=== PATIENT | female | born 1955 | race Caucasian/White ===

== ENCOUNTER 2021-03-09 16:26 | Inpatient (IN) | payer OTHER, MEDICAID ==
[~2021-03-09] VITALS: Ht 165.1 cm; Wt 86.2 kg
[~2021-03-09 16:26] MED LIST: LOSA50TA57 PO
--- NOTE | 2021-03-09 16:36 | NUR ---
CALLED PT IN LOBBY AND OUTSIDE, NO ANSWER AT THIS TIME
[2021-03-09 16:39] VITALS: BP 122/70
--- NOTE | 2021-03-09 16:39 | NUR ---
[facility] TO ER BED 1
--- NOTE | 2021-03-09 16:43 | NUR ---
PT BIB ALS RUN C/C CHEST PAIN. PT STATES CHEST PAIN STARTED WHILE TAKING THE TRASH OUT SUBSTERNAL NON RADIATING PRESSURE TYPE PAIN. GIVEN 324 MG ASA AND 4 NITRO WITH RELIEF FROM CP.
--- NOTE | 2021-03-09 16:55 | NUR ---
Flower dela cruz in ED - 03/09/21 at 1656 by [facility] ALS TO ER BED 1
[2021-03-09 17:30] LABS: BASOPHILS % (AUTO) 0.5 % (0.0-2.0); EOSINOPHILS # (AUTO) 0.1 K/uL (0-0.4); EOSINOPHILS % (AUTO) 2.3 % (0.0-4.0); HEMATOCRIT 36.7 % (36-48); HEMOGLOBIN 12.2 g/dL (12.0-16.0); LYMPHOCYTES # (AUTO) 0.8 K/uL (2.5-16.5); LYMPHOCYTES % (AUTO) 14.6 % (20.5-51.1); MEAN CORPUSCULAR HEMOGLOBIN 30 pg (27-31); MEAN CORPUSCULAR HGB CONC 33 g/dL (33-37); MEAN CORPUSCULAR VOLUME 90.1 fL (80-94); MONOCYTES # (AUTO) 0.4 K/uL (0.8-1.0); MONOCYTES % (AUTO) 7.2 % (1.7-9.3); NEUTROPHILS # (AUTO) 4.3 K/uL (1.8-7.7); NEUTROPHILS % (AUTO) 75.4 % (42.2-75.2); PLATELET COUNT (AUTO) 241 K/uL (140-450); RED BLOOD CELL COUNT(AUTO) 4.07 MIL/uL (4.20-5.40); RED CELL DISTRIBUTION WIDTH 14.2 % (11.6-13.7); WHITE BLOOD COUNT (AUTO) 5.7 K/uL (4.8-10.8)
[2021-03-09 17:39] LABS: ALBUMIN 3.5 g/dL (3.4-5.0); ANION GAP 12.6 (8-16); CARBON DIOXIDE 29.5 mmol/L (21-32); CREATININE 0.8 mg/dL (0.6-1.3); POTASSIUM 4.1 mmol/L (3.5-5.1); TOTAL BILIRUBIN 0.3 mg/dL (0.0-1.0)
--- NOTE | 2021-03-09 18:42 | NUR ---
PT AMBULATES TO BATHROOM AND BACK TO [facility]. SAFETY MAINTAINED
[2021-03-09] MEDS ORDERED: OLME40TA11 PO (19:10)
[2021-03-09] MEDS ORDERED: SITA50TA3 PO (19:10)
[2021-03-09] MEDS ORDERED: ESCI10TA PO (19:10)
--- NOTE | 2021-03-09 19:10 | NUR ---
REPORT RECEIVED FROM IVAN HANDY FOR CONTINUITY OF PT CARE AT THIS TIME.
--- NOTE | 2021-03-09 19:15 | NUR ---
PT SITTING IN BED LOCKED IN LOWEST POSITION W X1 SIDERAIL UP. PT EATING DINNER AT THIS TIME. PT REPORTS SHE FEELS GOOD, DENIES ANY CHEST PAIN, SOB, N/V, OR OTHER SYMPTOMS. VSS. BREATHING EVEN AND UNLABORED. NAD NOTED, WILL CONTINUE TO MONITOR. DAUGHTER AT BEDSIDE. PMH: HTN, ANXIETY, DIABETES NKA
[2021-03-09] MEDS: NACL 0.9% 1,000 ML IV SCH ×2 (19:26→21:40)
--- NOTE | 2021-03-09 20:55 | NUR ---
PT AMBULATED TO BATHROOM W STEADY GAIT. NO C/O CHEST PAIN OR SOB.
[2021-03-09] MEDS ORDERED: DOCUSATE SODIUM 100 MG GELCAP PO PRN (21:40)
[2021-03-09] MEDS ORDERED: POTASSIUM CHLORIDE 10 MEQ TABER PO PRN (21:40)
[2021-03-09] MEDS ORDERED: ONDANSETRON 4 MG/2 ML VIAL IM/IVP PRN (21:40)
[2021-03-09] MEDS ORDERED: guaiFENesin DM 200/20 MG-10 ML 10 ML UDC PO PRN (21:40)
[2021-03-09] MEDS ORDERED: ACETAMINOPHEN 325 MG TAB PO PRN (21:40)
[2021-03-09] MEDS ORDERED: ZOLPIDEM 5 MG TAB PO PRN (21:40)
[2021-03-09] MEDS ORDERED: HYDROcodone/APAP 7.5/325 MG 1 TAB PO PRN (21:40)
[2021-03-09] MEDS ORDERED: NITROGLYCERIN 0.4 MG TAB SL PRN (21:40)
[2021-03-09] MEDS ORDERED: DEXTROSE 50% 50 ML SYR IVP PRN (21:45)
[2021-03-09 22:27] LABS: PROTHROMBIN TIME 10.1 secs (10.8-13.4)
[2021-03-09 22:39] LABS: CHOL/HDL RATIO 4.7 (1-4.5); FREE T4 (FREE THYROXINE) 0.77 ng/dL (0.76-1.46); MAGNESIUM 1.8 mg/dL (1.8-2.4); THYROID STIMULATING HORMONE 1.94 uIU/mL (0.34-3.74)
--- NOTE | 2021-03-09 22:50 | NUR ---
PT APPEARS TO BE RESTING W EYES CLOSED IN R LATERAL POSITION W X2 SIDERAILS UP FOR PT SAFETY. BREATHING EVEN AND UNLABORED. NAD NOTED WILL CONTINUE TO MONITOR. VSS
--- NOTE | 2021-03-09 23:06 | NUR ---
PT UNABLE TO PROVIDE URINE, WILL ATTEMPT LATER. PT DENIES ANY CHEST PAIN OR SOB. ALL NEEDS MET AT THIS TIME.
--- NOTE | 2021-03-10 01:30 | NUR ---
PT APPEARS TO BE RESTING W EYES CLOSED IN SUPINE POSITION W X2 SIDERAILS UP FOR PT SAFETY. BREATHING EVEN AND UNLABORED. NAD NOTED WILL CONTINUE TO MONITOR. VSS
--- NOTE | 2021-03-10 04:00 | NUR ---
PT AMBULATED TO THE RESTROOM
--- NOTE | 2021-03-10 04:08 | NUR ---
PT LAYING IN BED W HOB ELEVATED. BED LOCKED IN LOWEST POSITION. PT DENIES ANY PAIN, SOB, OR OTHER SYMPTOMS. PT REPORTS SHE FEELS GOOD. VSS. NAD NOTED, WILL CONTINUE TO MONITOR.
[2021-03-10 04:17] LABS: APPEARANCE,URINE CLEAR (CLEAR); BILIRUBIN,URINE NEGATIVE (NEGATIVE); BLOOD, URINE NEGATIVE (NEGATIVE); COLOR,URINE YELLOW (YELLOW); LEUKOCYTE ESTERASE ,URINE NEGATIVE (NEGATIVE); NITRITE, URINE NEGATIVE (NEGATIVE); UGLUCOSE NEGATIVE (NEGATIVE)
[2021-03-10 04:29] LABS: BARBITURATE, URINE NEGATIVE ng/ml (NEG <=200); BENZODIAZEPINE, URINE NEGATIVE ng/mL (NEG <=200); CANNABINOID, URINE NEGATIVE ng/mL (NEG <=50); COCAINE, URINE NEGATIVE ng/mL (NEG <=300); OPIATE, URINE NEGATIVE ng/mL (NEG <=2000); PHENCYCLIDINE SCREEN,URINE NEGATIVE ng/mL (NEG <=25)
[2021-03-10 06:43] LABS: BASOPHILS % (AUTO) 0.6 % (0.0-2.0); EOSINOPHILS # (AUTO) 0.2 K/uL (0-0.4); EOSINOPHILS % (AUTO) 3.9 % (0.0-4.0); HEMATOCRIT 35.3 % (36-48); HEMOGLOBIN 11.7 g/dL (12.0-16.0); LYMPHOCYTES # (AUTO) 1.1 K/uL (2.5-16.5); LYMPHOCYTES % (AUTO) 25.5 % (20.5-51.1); MEAN CORPUSCULAR HEMOGLOBIN 30 pg (27-31); MEAN CORPUSCULAR HGB CONC 33 g/dL (33-37); MEAN CORPUSCULAR VOLUME 90.2 fL (80-94); MONOCYTES # (AUTO) 0.4 K/uL (0.8-1.0); MONOCYTES % (AUTO) 8.4 % (1.7-9.3); NEUTROPHILS # (AUTO) 2.7 K/uL (1.8-7.7); NEUTROPHILS % (AUTO) 61.6 % (42.2-75.2); PLATELET COUNT (AUTO) 223 K/uL (140-450); RED BLOOD CELL COUNT(AUTO) 3.92 MIL/uL (4.20-5.40); RED CELL DISTRIBUTION WIDTH 14.1 % (11.6-13.7); WHITE BLOOD COUNT (AUTO) 4.5 K/uL (4.8-10.8)
--- NOTE | 2021-03-10 07:05 | NUR ---
Pt report given to IVAN TALLEY AND IVAN NORTON. Transfer of care at this time.
--- NOTE | 2021-03-10 07:05 | NUR ---
REPORT RECEIVED FROM IVAN TORIBIO FOR CONTINUITY OF CARE AT THIS TIME.
--- NOTE | 2021-03-10 07:05 | NUR ---
REPORT RECEIVED FROM IVAN TORIBIO FOR CONTINUITY OF CARE AT THIS TIME.
--- NOTE | 2021-03-10 07:15 | NUR ---
PATIENT APPEARS TO BE RESTING WITH EYES CLOSED, ON BEDSIDE GROUNDS SUPERVISOR. VSS, WILL CONTINUE TO MONITOR.
[2021-03-10 07:16] LABS: CREATININE 0.6 mg/dL (0.6-1.3)
--- NOTE | 2021-03-10 07:25 | NUR ---
DR. BONNER BEDSIDE EVALUATING PATIENT.
[2021-03-10] MEDS: BLOOD GLUCOSE MONITORING 1 DEV DEV FS SCH ×4 (07:40→20:47)
--- NOTE | 2021-03-10 07:58 | NUR ---
RECEIVE REPORT FROM ER NURSE, PATIENT CAME FROM HOME DUE TO CHEST PAIN , DX;CHEST PAIN, TROPONIN NORMAL LEVEL, PATIENT HAS DIABETES, HTN AND ANIXITY IN HISTORY, SHE IS FULL CODE , AMBULATE , PATIENT IS FULLY VACCINATED, IN ROOM AIR,LAST GLUCOSE CHECK WAS AT 7;30 AM 123. WAITING FOR THE PATIENT TO COME TO THE FLOOR.
--- NOTE | 2021-03-10 07:58 | NUR ---
Patient will be admitted to care of DR. PHILLIPS. Admited to TELE. Will go to room 104B. Belongings list completed. Report to DMITRY.
[2021-03-10] MEDS ORDERED: lisinopriL 5 MG TAB PO SCH (09:00)
[2021-03-10] MEDS ORDERED: OLMESARTAN MEDOXOMIL 40 MG PO SCH (09:00)
[2021-03-10 09:30] VITALS: BP 155/55
[2021-03-10] MEDS: PANTOPRAZOLE 40 MG TABEC PO SCH (09:34)
[2021-03-10] MEDS: LOSARTAN 50 MG TAB PO SCH (09:34)
[2021-03-10] MEDS: ESCITALOPRAM 20 MG TAB PO SCH (09:34)
[2021-03-10] MEDS: METOPROLOL 25 MG TAB PO SCH ×2 (09:34→20:49)
[2021-03-10] MEDS: ECOTRIN 81 MG TABEC PO SCH (09:35)
--- NOTE | 2021-03-10 09:35 | NUR ---
RECEIVED PATIENT FROM ER. PATIENT IS AX4 BREATHING EVEN UNLABORED, PATIENT DENIES ANY PAIN OR CHEST PAIN, PATIENT IS AMBULATORY, HAS AN IV ON LEFT HAND 20G, INFUSING NS 60ML/H, PATENT ASYMPTOMATIC, PATIENT IS FULL CODE, HAS ALLERGY TO RED DYE, PATIENT IN ROOM AIR. NO COMPLAINS AT THIS TIME, CALLS LIGHT WITHIN REACH FAMILY MEMBER NEXT TO BED SIDE, PATIENT GOT MORNING MEDICATION TOLERATED WELL. ALL SAFETY MEASURES ON PLACE.
--- NOTE | 2021-03-10 10:07 | NUR ---
PATIENT HAS BEEN SCREENED AND CATEGORIZED LOW NUTRITION RISK. PATIENT WILL BE SEEN WITHIN 7 DAYS OF ADMISSION. 03/16/[address]
[2021-03-10] MEDS: NACL 0.9% 1,000 ML IV SCH ×2 (11:37→14:33)
[2021-03-10 12:00] VITALS: BP 127/74
[2021-03-10] MEDS: INSULIN LISPRO SLIDING SCALE 100 UNITS/ML VIAL SUBQ PRN (12:13)
--- NOTE | 2021-03-10 13:15 | NUR ---
PATIENT IN BED NO COMPLAINS NO SOD NOTED, FAMILY MEMBER NEXT TO BED SIDEALL SAFETY MEASURES ON PLACE, CALLS LIGHT WITHIN REACH
[2021-03-10 16:00] VITALS: BP 124/52
--- NOTE | 2021-03-10 16:25 | NUR ---
PATIENT IN BED NO COMPLAINS, PATIENT EDUCATED ABOUT NO CAFFEIN FROM TONIGHT , TOMORROW WILL DO STRESS TEST, DENIES ANY PAIN, ALL SAFETY MEASURES ON PLACE CALLS LIGHT WITHIN REACH
[2021-03-10] MEDS ORDERED: ATORVASTATIN 20 MG TAB PO SCH (17:00)
--- NOTE | 2021-03-10 17:34 | NUR ---
PATIENT IN BED NO COMPLAINS, NO SOD NOTED, DENIES ANY PAIN, ALL SAFETY MEASURES ON PLACE CALLS LIGHT WITHIN REACH
--- NOTE | 2021-03-10 19:30 | NUR ---
DISCUSSED PATIENT PLAN OF CARE WITH RUDDY CANSECO AND IGOR DICKSON.
--- NOTE | 2021-03-10 19:37 | NUR ---
FULL BEDSIDE REPORT GIVEN TO MAIL INSERTER NURSE
--- NOTE | 2021-03-10 19:38 | NUR ---
RECD. PATIENT RESTING IN BED, AWAKE, A/OX4. RESPIRATION EVEN AND UNLABORED. IV OF NS INFUSING AT 60ML/HR, LEFT HAND G20. INDEPENDENT, ABLE TO AMBULATE BY HERSELF. ON CARDIAC DIET. MEDICATIONS FOR THE NIGHT DISCUSSED PATIENT. DENIES CHEST PAIN 0/10.
[2021-03-10 20:00] VITALS: BP 137/71
--- NOTE | 2021-03-10 21:40 | NUR ---
ROUNDING PATIENT. SLEEPING COMFORTABLY. CHEST SEEN RISING AND FALLING. CALL LIGHT WITHIN REACH. WILL CONT TO MONITOR.
--- NOTE | 2021-03-10 22:00 | NUR ---
[facility] CALLED, PATIENT WILL HAVE STRESS TEST TOMORROW AT 1400. NEED TO BE NPO FAST BREAKFAST. NO CAFFEINE AND LIGHT BREAKFAST ONLY AND HOLD METOPROLOL.
--- NOTE | 2021-03-10 23:40 | NUR ---
PATIENT IN BED SLEEPING WELL. CHEST SEEN RISING AND FALLING. CALL LIGHT WITHIN REACH. WILL CONT TO MONITOR.
[2021-03-11] VITALS: BP 109/45
--- NOTE | 2021-03-11 01:30 | NUR ---
CHECKED PATIENT, SLEEPING ON HER RIGHT SIDE, RESPIRATION EVEN AND UNLABORED. CALL LIGHT IN REACH.
--- NOTE | 2021-03-11 03:30 | NUR ---
PATIENT MADE AWARE OF TIME OF STRESS TEST 1400 TODAY. AWARE AFTER NPO BREAKFAST.
[2021-03-11 04:00] VITALS: BP 118/62
[2021-03-11 06:19] LABS: BASOPHILS % (AUTO) 0.6 % (0.0-2.0); EOSINOPHILS # (AUTO) 0.2 K/uL (0-0.4); EOSINOPHILS % (AUTO) 4.5 % (0.0-4.0); HEMATOCRIT 35.1 % (36-48); HEMOGLOBIN 11.7 g/dL (12.0-16.0); LYMPHOCYTES # (AUTO) 1.2 K/uL (2.5-16.5); LYMPHOCYTES % (AUTO) 29.9 % (20.5-51.1); MEAN CORPUSCULAR HEMOGLOBIN 30 pg (27-31); MEAN CORPUSCULAR HGB CONC 33 g/dL (33-37); MEAN CORPUSCULAR VOLUME 90.4 fL (80-94); MONOCYTES # (AUTO) 0.3 K/uL (0.8-1.0); MONOCYTES % (AUTO) 8.5 % (1.7-9.3); NEUTROPHILS # (AUTO) 2.2 K/uL (1.8-7.7); NEUTROPHILS % (AUTO) 56.5 % (42.2-75.2); PLATELET COUNT (AUTO) 217 K/uL (140-450); RED BLOOD CELL COUNT(AUTO) 3.88 MIL/uL (4.20-5.40); RED CELL DISTRIBUTION WIDTH 13.9 % (11.6-13.7); WHITE BLOOD COUNT (AUTO) 3.9 K/uL (4.8-10.8)
--- NOTE | 2021-03-11 06:30 | NUR ---
ABLE TO SLEEP WELL. NO COMPLAINT OF CHEST PAIN DURING THE SHIFT.
[2021-03-11 06:32] LABS: ANION GAP 9.6 (8-16); CARBON DIOXIDE 27.4 mmol/L (21-32); CREATININE 0.6 mg/dL (0.6-1.3)
[2021-03-11] MEDS: NACL 0.9% 1,000 ML IV SCH (07:00)
--- NOTE | 2021-03-11 07:15 | NUR ---
RECEIVED ENDORSEMENT FROM NIGHT NURSE FOR CONTINUITY OF CARE. ALERT ON STABLE CONDITION WITH IV LINE ON LEFT HAND G 20 NO S/S OF INFECTION. INFORM OF STRESS TEST AT 2PM AND NPO AFTER BREAKFAST AND NO COFFEE VERBALIZED UNDERSTANDING. ALL SAFETY MEASURE IN PLACE. CALL LIGHT WITH IN EASY REACH.
--- NOTE | 2021-03-11 07:15 | NUR ---
CONDITION REMAIN STABLE. ENDORSED TO AM SHIFT NURSE FOR CONTINUITY OF CARE.
[2021-03-11] MEDS: BLOOD GLUCOSE MONITORING 1 DEV DEV FS SCH ×2 (07:47→11:38)
[2021-03-11 08:00] VITALS: BP 132/66
[2021-03-11] MEDS: LOSARTAN 50 MG TAB PO SCH (09:00)
[2021-03-11] MEDS ORDERED: REGADENOSON 0.4 MG/5 ML SYR IV SCH (09:00)
[2021-03-11] MEDS: METOPROLOL 25 MG TAB PO SCH (09:00)
[2021-03-11] MEDS: PANTOPRAZOLE 40 MG TABEC PO SCH (09:47)
[2021-03-11] MEDS: ESCITALOPRAM 20 MG TAB PO SCH (09:47)
[2021-03-11] MEDS: ECOTRIN 81 MG TABEC PO SCH (09:48)
--- NOTE | 2021-03-11 09:55 | NUR ---
PT ALERT AND ON STABLE CONDITION. GIVEN MEDICATION EXCEPT FOR METOPROLOL AND [place] DUE TO PT HAVING ETHEL SCAN. ALL SAFETY MEASURE IN PLACE. CALL LIGHT WITH IN EASY REACH.
[2021-03-11] MEDS ORDERED: METO25TA PO (10:30)
[2021-03-11] MEDS ORDERED: LOSA100T1 PO (10:30)
[2021-03-11] MEDS ORDERED: ASPI-1822 PO (10:30)
[2021-03-11] MEDS ORDERED: OMEP20EC11 PO (10:32)
[2021-03-11] MEDS: INSULIN LISPRO SLIDING SCALE 100 UNITS/ML VIAL SUBQ PRN (11:49)
--- NOTE | 2021-03-11 11:57 | NUR ---
PT ON BED RESTING BLOOD SUGAR CHECK WITH RESULT OF 157 . CONTINUE ON NPO AFTER BREAKFAST. ON STABLE CONDITION. ALL SAFETY MEASURE IN PLACE. CALL LIGHT WITH IN EASY REACH.
[2021-03-11 12:00] VITALS: BP 134/60
--- NOTE | 2021-03-11 12:00 | NUR ---
PT REFUSED LISPRO INSULIN COVERAGE OF U NITS. EVEN WITH ENCOURAGEMENT AND EXPLANATION OF RISK AND BENEFIT.
--- NOTE | 2021-03-11 13:33 | NUR ---
GARY FROM PHARMACY CALLED VERIFYING ORDER FOR POTASSIUM AND IF WE VERIFY TO DR. LANGLEY. INFORM DR. LANGLEY THAT POTASSIUM IS ON 3.6 NOW IF STILL CONTINUE TO GIVE POTASSIUM [address] LANGLEY SAID TO GIVE THE POTASIUM 40 MEQ AT 1500 AND GIVE 60 ELIXER TONIGHT. AND HE ORDER LABS BMP FOR TOMORROW.
--- NOTE | 2021-03-11 13:50 | NUR ---
PATIENT STILL OFF UNIT GETTING LEXISCAN.
--- NOTE | 2021-03-11 14:45 | NUR ---
PT BACK FROM LEXISCAN TEST ON STABLE CONDITION. ALL SAFETY MEASURE IN PLACE. CALL LIGHT WITH IN EASY REACH.
--- NOTE | 2021-03-11 15:32 | NUR ---
NOTIFIED DR. GRIDER OF ETHEL SCAN RESULT IF IT OKAY TO DISCHARGE PT. WAITING FOR RESPONSE.
--- NOTE | 2021-03-11 15:33 | NUR ---
DR. GRIDER RESPONDED OKAY TO DISCHARGE HOME.
--- NOTE | 2021-03-11 16:33 | NUR ---
PATIENT AWAKE AND ALERT. NO ACUTE DISTRESS NOTED. PATIENT DENIES PAIN AT THIS TIME. CALL LIGHT WITHIN REACH. ALL SAFETY MEASURES IN PLACE. WILL CONTINUE TO MONITOR.
--- NOTE | 2021-03-11 17:10 | NUR ---
PT ALERT ON STABLE CONDITION. GIVEN DISCHARGE POCKET AND INSTRUCTION GIVEN VERBALIZED UNDERSTANDING. ALL BELONGING GIVEN. REMOVE WRIST BAND AND IV CATHETER INTACT. PATIENT TIRE BUILDER OPERATOR BY DAUGHTER WALK TO THE LOBBYWITH DAUGHTER.
[2021-03-11 21:40] LABS: T4 (THYROXINE) 6.1 ug/dL (4.5 - 12.0)
== END 2021-03-11 17:33 | disposition home or self-care (01) | DRG 392 ==
LOC: MED 16:26 → MTU 18:44 → MED 18:44 → MTU 03-10 05:42
PROVIDERS: ADMIT Family Medicine; ATTEND Family Medicine
DX: K21.9 Gastro-esophageal reflux disease without esophagitis (principal); I20.9 Angina pectoris, unspecified; E11.9 Type 2 diabetes mellitus without complications; E78.2 Mixed hyperlipidemia; F41.9 Anxiety disorder, unspecified; E86.0 Dehydration; I10 Essential (primary) hypertension; Z82.49 Family history of ischemic heart disease and other diseases of the circulatory system; Z85.038 Personal history of other malignant neoplasm of large intestine; Z90.49 Acquired absence of other specified parts of digestive tract; Z98.891 History of uterine scar from previous surgery; Z79.899 Other long term (current) drug therapy; Z98.51 Tubal ligation status
CPT/HCPCS: 36415; 71045; 80048; 80053; 80305; 81003; 82150; 82948; 83036; 83690; 83735; 83880; 84100; 84436; 84439; 84443; 84479; 84484; 85025; 85610; 85730; 87081; 93005; 93017; 99285; A9500; A9502; J1644; J2785